=== PATIENT | female | born 1960 | race Caucasian/White ===

== ENCOUNTER 2017-08-12 06:40 | Day surgery (SDC) | payer OTHER ==
[2017-08-12] MEDS ORDERED: Lactated Ringer's 1,000 ML IV ONE (08:47)
--- NOTE | 2017-08-12 08:47 | CP.SDSHP ---
Same Day Surgery H & P - History Proposed Procedure: COLONSCOPY Pre-Op Diagnosis: SCREENING - Previous Medical/Surgical History Cardiac: Hypertension Misc: Other Pain: 2.Mild Pain Previous Surgical History: TUBAL LIG. - Allergies Allergies: Allergies No Known Allergies Allergy (Unverified 12/31/13 23:09) - Physical Exam General Appearance: N Vital Signs: Vital Signs 08/12/17 07:14 Temperature 98 F Pulse Rate 80 Respiratory 20 Rate Blood Pressure 120/71 O2 Sat by Pulse 98 Oximetry Mental Status: Alert & Oriented x3 Neuro: WNL Heart: Other Lungs: WNL GI: WNL - {Optional Preform as Required} Breast: WNL Abdomen: WNL Rectal: Other Integument: WNL : WNL Ortho: WNL ENT: WNL - Impression Pt. Evaluated Today:Candidate for Anesthesia & Procedure: Yes - Date & Time Time: 08:47 Short Stay Discharge - Short Stay Discharge Admitting Diagnosis/Reason for Visit: SCREENING Disposition: HOME/ ROUTINE
[2017-08-12] MEDS ORDERED: Propofol 10 mg/ml Inj (20 ML) ONE ×2 (08:48)
[2017-08-12] MEDS ORDERED: Lidocaine Hydrochloride 5 ML INJ ONE (08:51)
[2017-08-12] MEDS ORDERED: Belladonna-Phenobarbital PO ONE (09:30)
[2017-08-12 09:58] VITALS: TEMP 97.8
[2017-08-12 09:59] VITALS: RESP 18
[2017-08-12 10:18] VITALS: BP 113/79; PULSE 84; O2SAT 99
== END 2017-08-12 10:06 | disposition home or self-care (01) ==
LOC: C.ENDO 06:40
PROVIDERS: ATTEND Specialist
DX: Z12.11 Encounter for screening for malignant neoplasm of colon (principal); K58.9 Irritable bowel syndrome, unspecified; I10 Essential (primary) hypertension; K64.8 Other hemorrhoids; K64.4 Residual hemorrhoidal skin tags
CPT/HCPCS: 45380; 88305; J2704; J7120